=== PATIENT | male | born 1985 | race Caucasian/White ===

== ENCOUNTER → 2018-10-13 | Outpatient (CLI) | payer MEDICAID ==
--- NOTE | 2018-10-13 15:09 | Diagnostic Imaging Report ---
INDICATION: Abnormal ausculatory breath sounds EXAMINATION: PA and lateral chest. FINDINGS: The heart size and pulmonary vascularity are normal. The lungs are clear. There are no effusions or pneumothoraces. IMPRESSION: Negative chest. Dictated by: Dictated on workstation # [id number]
== END ==
LOC: RAD FS 14:44
PROVIDERS: ATTEND Nurse Practitioner Family
DX: R09.89 Other specified symptoms and signs involving the circulatory and respiratory systems (principal)
CPT/HCPCS: 71046

== ENCOUNTER → 2018-12-18 | Outpatient (CLI) | payer MEDICAID ==
--- NOTE | 2018-12-18 12:40 | Diagnostic Imaging Report ---
INDICATION: Abdominal pain. KUB obtained at 12:17 p.m. FINDINGS: The abdominal bowel gas pattern is unremarkable. There is no sign of obstruction or ileus. There is moderate stool throughout the colon. There are no suspicious calcifications. IMPRESSION: Unremarkable abdominal film, no sign of bowel obstruction or ileus. There is no suspicious calcification. Dictated by: Dictated on workstation # [id number]
== END ==
LOC: RAD FS 12:11
PROVIDERS: ATTEND Nurse Practitioner Family
DX: R10.84 Generalized abdominal pain (principal)
CPT/HCPCS: 74019

== ENCOUNTER → 2020-11-28 | Outpatient (CLI) | payer MEDICAID ==
--- NOTE | 2020-11-28 12:15 | Diagnostic Imaging Report ---
INDICATION: Abdominal pain in left lower quadrant as well as constipation. Time of exam 11:44 AM Moderate stool right colon and transverse colon is noted. Bowel gas pattern is nonobstructed. No pathologic calcifications are seen. No free air is identified. IMPRESSION: Moderate stool right colon and transverse colon. The study is otherwise unremarkable. Dictated by: Dictated on workstation # [id number]
== END ==
LOC: RAD FS 11:37
PROVIDERS: ATTEND Nurse Practitioner Family
DX: K59.00 Constipation, unspecified (principal)
CPT/HCPCS: 74019